=== PATIENT | female | born 1985 | race Caucasian/White ===

== ENCOUNTER 2017-05-19 08:52 | Emergency (ER) | payer SELFPAY ==
[~2017-05-19] VITALS: Ht 162.6 cm; Wt 83.9 kg
[~2017-05-19 08:52] MED LIST: CEPH500 PO; DOXY100T53 PO; PHENA200 PO; Zofran Odt4 MG SL
[2017-05-19 09:42] LABS: BASOPHILS ABSOLUTE AUTO 0.06 K/mm3 (0.00-0.23); BASOPHILS PERCENT AUTO 1 % (0-2); EOSINOPHILS ABSOLUTE AUTO 0.05 K/mm3 (0.00-0.68); EOSINOPHILS PERCENT AUTO 1 % (0-6); Hematocrit 36.6 % (33.0-51.0); Hemoglobin 12.6 g/dL (11.5-16.0); IMMATURE GRAN ABSOLUTE AUTO 0.01 K/mm3 (0.00-0.10); IMMATURE GRAN PERCENT AUTO 0 % (0-1); LYMPHOCYTES ABSOLUTE AUTO 1.39 K/mm3 (0.84-5.20); LYMPHOCYTES PERCENT AUTO 25 % (21-46); MONOCYTES ABSOLUTE AUTO 0.21 K/mm3 (0.16-1.47); MONOCYTES PERCENT AUTO 4 % (4-13); Mean Corpuscular HGB 28.8 pg (26.0-34.0); Mean Corpuscular HGB Conc 34.4 g/dL (31.5-36.5); Mean Corpuscular Volume 84 fL (80-100); Mean Platelet Volume 8.5 fL (9.1-12.4); NEUTROPHILS ABSOLUTE AUTO 3.78 K/mm3 (1.96-9.15); NEUTROPHILS PERCENT AUTO 69 % (41-73); Platelet Count 288 K/mm3 (150-400); RDW Coefficient Variation 13.8 % (11.7-14.2); RDW Standard Deviation 42.1 fL (35.1-46.3); Red Blood Cell Count 4.37 M/mm3 (3.80-5.20)
[2017-05-19 10:08] LABS: Alanine Aminotransfer (ALT/SGP 31 U/L (12-78); Albumin, Blood 3.6 g/dL (3.4-5.0); Albumin/Globulin Ratio 0.9 (0.8-1.8); Alk Phos 68 U/L (50-136); Anion Gap 15 mmol/L (6-16); Aspartate Aminotrans (AST/SGOT 22 U/L (12-37); Bilirubin, Total 0.3 mg/dL (0.1-1.0); Blood Urea Nitrogen 11 mg/dL (8-24); Bun/Creatinine Ratio 21.2 (12.0-20.0); CO2, Blood 18 mmol/L (21-32); Calcium, Blood 8.9 mg/dL (8.5-10.1); Chloride, Blood 108 mmol/L (98-108); Creatinine, Blood 0.52 mg/dL (0.40-1.00); Glomerular Filtration Rate >60 (60-); Glucose, Blood 127 mg/dL (70-99); Potassium, Blood 3.5 mmol/L (3.5-5.5); Sodium, Blood 141 mmol/L (136-145); Total Protein, Blood 7.6 g/dL (6.4-8.2)
[2017-05-19] MEDS ORDERED: PROM25 PO (10:48)
[2017-05-19] MEDS ORDERED: CHLO25 PO (10:48)
== END 2017-05-19 11:17 | disposition home or self-care (01) ==
LOC: ER 08:52
PROVIDERS: Emergency Medicine
DX: K29.70 Gastritis, unspecified, without bleeding (principal); F10.10 Alcohol abuse, uncomplicated; E86.0 Dehydration; F17.200 Nicotine dependence, unspecified, uncomplicated
CPT/HCPCS: 36415; 80053; 81025; 83690; 85025; 96374; 96375; 99283; C9113; J1170; J2550; J7120

== ENCOUNTER → 2020-11-10 | Outpatient (CLI) | payer OTHER ==
[~2020-11-10] MED LIST changes: +Ativan1 MG SL; +CHLO25 PO; +PROM25 PO; +Pepcid40 MG PO
== END | disposition home or self-care (01) ==
LOC: LAB SHORT 13:05 → LAB 13:05
DX: D48.5 Neoplasm of uncertain behavior of skin (principal)
CPT/HCPCS: 88304

== ENCOUNTER → 2020-11-16 | Outpatient (CLI) | payer OTHER ==
[2020-11-17 17:08] LABS: HPV 16 Negative (Negative); HPV 18 Negative (Negative); HPV OTHER HR TYPES Negative (Negative)
== END ==
LOC: LAB SHORT 10:30 → LAB 10:30
PROVIDERS: Family Medicine
DX: Z01.419 Encounter for gynecological examination (general) (routine) without abnormal findings (principal)
CPT/HCPCS: 87624; G0123

== ENCOUNTER 2023-08-25 10:18 | Emergency (ER) | payer OTHER ==
[~2023-08-25] VITALS: Ht 162.6 cm; Wt 68.0 kg
[2023-08-25] MEDS ORDERED: CETI5 (10:52)
[2023-08-25] MEDS ORDERED: NS 1,000 ML IV SCH ×2 (11:35→13:15)
[2023-08-25] MEDS ORDERED: Ondansetron HCl 2 MG / ML 2ML Vial IV ONE (11:35)
[2023-08-25 11:36] LABS: BASOPHILS ABSOLUTE AUTO 0.07 K/mm3 (0.00-0.23); BASOPHILS PERCENT AUTO 1 % (0-2); EOSINOPHILS PERCENT AUTO 0 % (0-6); Hematocrit 36.1 % (33.0-51.0); Hemoglobin 12.6 g/dL (11.5-16.0); IMMATURE GRAN ABSOLUTE AUTO 0.02 K/mm3 (0.00-0.10); IMMATURE GRAN PERCENT AUTO 0 % (0-1); LYMPHOCYTES ABSOLUTE AUTO 0.76 K/mm3 (0.84-5.20); LYMPHOCYTES PERCENT AUTO 13 % (21-46); MONOCYTES ABSOLUTE AUTO 0.07 K/mm3 (0.16-1.47); MONOCYTES PERCENT AUTO 1 % (4-13); Mean Corpuscular HGB 29.3 pg (26.0-34.0); Mean Corpuscular HGB Conc 34.9 g/dL (31.5-36.5); Mean Corpuscular Volume 84 fL (80-100); Mean Platelet Volume 8.2 fL (9.1-12.4); NEUTROPHILS ABSOLUTE AUTO 4.95 K/mm3 (1.96-9.15); NEUTROPHILS PERCENT AUTO 84 % (41-73); Platelet Count 301 K/mm3 (150-400); RDW Standard Deviation 39.7 fL (35.1-46.3); White Blood Cell Count 5.87 K/mm3 (4.00-11.30)
[2023-08-25 11:55] LABS: Albumin/Globulin Ratio 1.1 (0.8-1.8); Bilirubin, Total 0.2 mg/dL (0.1-1.0); Bun/Creatinine Ratio 21.4 (12.0-20.0); Calcium, Blood 8.6 mg/dL (8.5-10.1); Creatinine, Blood 0.52 mg/dL (0.40-1.00); Globulin, Blood 3.7 g/dL (2.2-4.0); Potassium, Blood 3.5 mmol/L (3.5-5.5); Total Protein, Blood 7.7 g/dL (6.4-8.2)
[2023-08-25] MEDS ORDERED: PHENobarbital Sodium 65MG / ML 1ML Vial IV ONE ×3 (12:05→14:30)
[2023-08-25] MEDS ORDERED: Ketorolac Tromethamine 15mg Vial IV ONE (13:10)
[2023-08-25] MEDS ORDERED: Famotidine 10 MG/ML 2ML Vial IV ONE (13:10)
[2023-08-25] MEDS ORDERED: Thiamine HCl 100 MG in NS 50 ML IV ONE (13:15)
[2023-08-25] MEDS ORDERED: PHENobarbital 64.8 MG Tab PO ONE (14:50)
[2023-08-25 15:20] VITALS: BP 121/82
== END 2023-08-25 15:25 | disposition home or self-care (01) ==
LOC: ER 10:18
PROVIDERS: Emergency Medicine
DX: F10.132 Alcohol abuse with withdrawal with perceptual disturbance (principal); F17.200 Nicotine dependence, unspecified, uncomplicated; Z79.899 Other long term (current) drug therapy
CPT/HCPCS: 80053; 85025; 96365; 96375; 96376; 99285-25; A9270; J1885; J2405; J2560; J3411; J7030

== ENCOUNTER 2023-11-15 22:23 | Emergency (ER) | payer OTHER ==
[~2023-11-15] VITALS: Ht 162.6 cm; Wt 68.0 kg
[~2023-11-15 22:23] MED LIST changes: +CETI5
[2023-11-15 23:00] LABS: BASOPHILS ABSOLUTE AUTO 0.07 K/mm3 (0.00-0.23); BASOPHILS PERCENT AUTO 0 % (0-2); EOSINOPHILS ABSOLUTE AUTO 0.03 K/mm3 (0.00-0.68); EOSINOPHILS PERCENT AUTO 0 % (0-6); Hematocrit 36.6 % (33.0-51.0); Hemoglobin 12.9 g/dL (11.5-16.0); IMMATURE GRAN ABSOLUTE AUTO 0.05 K/mm3 (0.00-0.10); IMMATURE GRAN PERCENT AUTO 0 % (0-1); LYMPHOCYTES ABSOLUTE AUTO 2.14 K/mm3 (0.84-5.20); LYMPHOCYTES PERCENT AUTO 14 % (21-46); MONOCYTES ABSOLUTE AUTO 0.44 K/mm3 (0.16-1.47); MONOCYTES PERCENT AUTO 3 % (4-13); Mean Corpuscular HGB 28.9 pg (26.0-34.0); Mean Corpuscular HGB Conc 35.2 g/dL (31.5-36.5); Mean Corpuscular Volume 82 fL (80-100); Mean Platelet Volume 8.4 fL (9.1-12.4); NEUTROPHILS ABSOLUTE AUTO 12.84 K/mm3 (1.96-9.15); NEUTROPHILS PERCENT AUTO 83 % (41-73); Platelet Count 354 K/mm3 (150-400); RDW Coefficient Variation 12.3 % (11.7-14.2); RDW Standard Deviation 37.2 fL (35.1-46.3); Red Blood Cell Count 4.47 M/mm3 (3.80-5.20); White Blood Cell Count 15.57 K/mm3 (4.00-11.30)
[2023-11-15] MEDS ORDERED: NS 1,000 ML IV SCH (23:00)
[2023-11-15] MEDS ORDERED: Ondansetron HCl 2 MG / ML 2ML Vial IV ONE (23:00)
[2023-11-15] MEDS ORDERED: Droperidol 5 mg/2 ml Vial IV ONE (23:20)
[2023-11-15 23:31] LABS: Albumin, Blood 4.1 g/dL (3.4-5.0); Albumin/Globulin Ratio 1.1 (0.8-1.8); Bilirubin, Total 0.4 mg/dL (0.1-1.0); Bun/Creatinine Ratio 19.4 (12.0-20.0); Calcium, Blood 9.2 mg/dL (8.5-10.1); Creatinine, Blood 0.57 mg/dL (0.40-1.00); Globulin, Blood 3.7 g/dL (2.2-4.0); Potassium, Blood 3.6 mmol/L (3.5-5.5); Total Protein, Blood 7.8 g/dL (6.4-8.2)
[2023-11-16] MEDS ORDERED: RX Prepack 2 Tabs Ondansetron ODT 4MG UD ONE (00:45)
[2023-11-16 01:15] VITALS: BP 114/102
== END 2023-11-16 01:20 | disposition home or self-care (01) ==
LOC: ER 22:23
PROVIDERS: Emergency Medicine
DX: R11.2 Nausea with vomiting, unspecified (principal); F10.10 Alcohol abuse, uncomplicated; F17.200 Nicotine dependence, unspecified, uncomplicated; Z79.899 Other long term (current) drug therapy
CPT/HCPCS: 80053; 83690; 85025; 93005; 93010; 96361; 96374; 96375; 99285-25; A9270; J1790; J2405; J7030

== ENCOUNTER 2024-05-28 07:24 | Inpatient (IN) | payer OTHER ==
[~2024-05-28] VITALS: Ht 162.6 cm; Wt 86.7 kg
[2024-05-28] MEDS ORDERED: LORazepam 2 MG/ML 1ML Injection IV ONE (08:00)
[2024-05-28] MEDS ORDERED: NS 1,000 ML IV SCH ×2 (08:00→09:50)
[2024-05-28] MEDS ORDERED: Ondansetron HCl 2 MG / ML 2ML Vial IV ONE (08:05)
[2024-05-28] MEDS ORDERED: Pantoprazole Sodium 40 MG Injection IV ONE (08:05)
[2024-05-28 08:07] LABS: BASOPHILS ABSOLUTE AUTO 0.06 K/mm3 (0.00-0.23); BASOPHILS PERCENT AUTO 1 % (0-2); EOSINOPHILS ABSOLUTE AUTO 0.04 K/mm3 (0.00-0.68); EOSINOPHILS PERCENT AUTO 1 % (0-6); Hematocrit 37.6 % (33.0-51.0); Hemoglobin 13.2 g/dL (11.5-16.0); IMMATURE GRAN ABSOLUTE AUTO 0.02 K/mm3 (0.00-0.10); IMMATURE GRAN PERCENT AUTO 0 % (0-1); LYMPHOCYTES ABSOLUTE AUTO 1.27 K/mm3 (0.84-5.20); LYMPHOCYTES PERCENT AUTO 18 % (21-46); MONOCYTES ABSOLUTE AUTO 0.57 K/mm3 (0.16-1.47); MONOCYTES PERCENT AUTO 8 % (4-13); Mean Corpuscular HGB 29.1 pg (26.0-34.0); Mean Corpuscular HGB Conc 35.1 g/dL (31.5-36.5); Mean Corpuscular Volume 83 fL (80-100); Mean Platelet Volume 8.2 fL (9.1-12.4); NEUTROPHILS ABSOLUTE AUTO 5.04 K/mm3 (1.96-9.15); NEUTROPHILS PERCENT AUTO 72 % (41-73); Platelet Count 284 K/mm3 (150-400); RDW Coefficient Variation 12.8 % (11.7-14.2); RDW Standard Deviation 38.8 fL (35.1-46.3); Red Blood Cell Count 4.53 M/mm3 (3.80-5.20)
[2024-05-28 08:32] LABS: Albumin/Globulin Ratio 1.1 (0.8-1.8); Bilirubin, Total 0.3 mg/dL (0.1-1.0); Bun/Creatinine Ratio 14.6 (12.0-20.0); Calcium, Blood 9.2 mg/dL (8.5-10.1); Creatinine, Blood 0.62 mg/dL (0.40-1.00); Globulin, Blood 3.8 g/dL (2.2-4.0); Potassium, Blood 3.7 mmol/L (3.5-5.5); Total Protein, Blood 7.8 g/dL (6.4-8.2)
[2024-05-28] MEDS ORDERED: Atropine/Scopalam/Hyoscam/PB 5 ML UDC PO ONE (08:45)
[2024-05-28] MEDS ORDERED: Famotidine 20 MG Tab PO ONE (08:45)
[2024-05-28] MEDS ORDERED: Mag Hydrox/AL Hydrox/Simeth 30 ML UDC PO ONE (08:45)
[2024-05-28] MEDS ORDERED: Lidocaine 2% Viscous Soln 15 ML UDC PO ONE (08:45)
[2024-05-28] MEDS ORDERED: Folic Acid 1 MG TAB PO SCH (09:00)
[2024-05-28] MEDS ORDERED: Thiamine HCl 100 MG Tab PO SCH (09:00)
[2024-05-28 09:11] LABS: Magnesium, Blood 1.8 mg/dL (1.6-2.4); Phosphorus, Blood 2.3 mg/dL (2.5-4.9)
[2024-05-28] MEDS ORDERED: Potassium Phosphate,Monobasic 500 MG Tablet PO ONE (09:40)
[2024-05-28] MEDS ORDERED: PHENobarbitaL sodium 130 MG/ML VIAL IV ONE (10:55)
[2024-05-28] MEDS ORDERED: Lactated Ringer's 1,000 ML IV SCH (11:00)
[2024-05-28] MEDS ORDERED: Ondansetron HCl 2 MG / ML 2ML Vial IV PRN (11:00)
[2024-05-28] MEDS ORDERED: LORazepam 2 MG/ML 1ML Injection IV PRN ×2 (11:00→11:15)
[2024-05-28] MEDS ORDERED: ChlordiazePOXIDE 25 MG Cap PO PRN ×2 (11:00→11:05)
[2024-05-28] MEDS ORDERED: Metoclopramide HCl 5MG / ML 2ML Vial IV PRN (11:00)
[2024-05-28] MEDS ORDERED: FentaNYL Citrate 50 MCG/ML 2 ML Injection IV PRN (11:05)
[2024-05-28] MEDS ORDERED: Potassium Phosphate Dibasic 20 MM in Dextrose 5% 500 ML IV STA (11:10)
[2024-05-28] MEDS ORDERED: LORazepam 2 MG / ML 10ML Vial IV PRN (11:20)
[2024-05-28 14:20] VITALS: BP 139/87
[2024-05-28] MEDS ORDERED: OMEP20ER PO (14:26)
[2024-05-28 16:09] LABS: Influenza A, PCR NEGATIVE (NEGATIVE); Influenza B, PCR NEGATIVE (NEGATIVE); Resp Syncytial Virus, PCR NEGATIVE (NEGATIVE); SARS-Cov-2 (COVID-19) PCR, MMC POSITIVE (NEGATIVE)
--- NOTE | 2024-05-28 18:10 | NUR ---
SHIFT SUMMARY PT ARRIVED TO PCU AT APPROXIMATELY 1410. PT TRANSFERED FROM ER [facility] TO HOSPITAL BED WITH SBA. PT A&Ox4, CALLS AND COMMUNICATES NEEDS APPROPRIATELY. CIWA 4 UPON ARRIVAL, PEAKED AT 8 - MANAGED PER EMAR. BP STABLE, SINUS 90'S, DENIES CP/PRESSURE. SpO2> 92% RA, DENIES SOB. NO C/O PAIN. NO OTHER EVENTS, WILL REPORT TO ONCOMING RN.
[2024-05-28 19:55] VITALS: BP 138/99
[2024-05-28] MEDS ORDERED: Thiamine HCl 500 MG in NS 100 ML IV SCH (21:00)
[2024-05-29] VITALS (7 sets, daily range): BP systolic 101–147; BP diastolic 72–103
[2024-05-29 04:11] LABS: Source, Urine Clean Catch
[2024-05-29 04:15] LABS: BASOPHILS ABSOLUTE AUTO 0.05 K/mm3 (0.00-0.23); BASOPHILS PERCENT AUTO 1 % (0-2); EOSINOPHILS ABSOLUTE AUTO 0.14 K/mm3 (0.00-0.68); EOSINOPHILS PERCENT AUTO 2 % (0-6); Hematocrit 35.1 % (33.0-51.0); Hemoglobin 11.6 g/dL (11.5-16.0); IMMATURE GRAN ABSOLUTE AUTO 0.02 K/mm3 (0.00-0.10); IMMATURE GRAN PERCENT AUTO 0 % (0-1); LYMPHOCYTES ABSOLUTE AUTO 2.29 K/mm3 (0.84-5.20); LYMPHOCYTES PERCENT AUTO 40 % (21-46); MONOCYTES ABSOLUTE AUTO 0.59 K/mm3 (0.16-1.47); MONOCYTES PERCENT AUTO 10 % (4-13); Mean Platelet Volume 8.5 fL (9.1-12.4); NEUTROPHILS ABSOLUTE AUTO 2.69 K/mm3 (1.96-9.15); NEUTROPHILS PERCENT AUTO 47 % (41-73); Platelet Count 235 K/mm3 (150-400); RDW Coefficient Variation 12.9 % (11.7-14.2); White Blood Cell Count 5.78 K/mm3 (4.00-11.30)
[2024-05-29 04:20] LABS: Appearance, Urine Clear (Clear); Bilirubin, Urine Neg (Neg); Blood, Urine Neg (Neg); Color, Urine Yellow (P-Yellow); Glucose Qualitative, Urine Neg (Neg); Ketones, Urine Neg (Neg); Leukocyte Esterase, Urine Neg (Neg); Nitrite, Urine Neg (Neg); Protein, Urine 1+ (Neg); Specific Gravity, Urine 1.015 (1.003-1.022); Urobilinogen, Urine NORM (Normal); pH, Urine 6.5 (5.0-8.0)
[2024-05-29 04:21] LABS: Mean Corpuscular Volume 88 fL (80-100)
--- NOTE | 2024-05-29 04:22 | NUR ---
NURSE NOTE STOOL AND URINE COLLECTED AND SENT TO LAB.
[2024-05-29 04:37] LABS: Bun/Creatinine Ratio 9.2 (12.0-20.0); Calcium, Blood 8.2 mg/dL (8.5-10.1); Creatinine, Blood 0.65 mg/dL (0.40-1.00); Magnesium, Blood 1.8 mg/dL (1.6-2.4); Phosphorus, Blood 3.5 mg/dL (2.5-4.9); Potassium, Blood 3.4 mmol/L (3.5-5.5)
--- NOTE | 2024-05-29 05:30 | NUR ---
SHIFT SUMMARY PT IS A+O X4 ABLE TO MAKE NEEDS KNOWN, CALLS AND COMMUNICATES NEEDS. CIWA 2-8 THIS SHIFT MEDICATED X1 PER EMAR. TELE SHOWING SINUS AT A RATE OF 68. DENIES CHEST PAIN OR PRESSURE. SpOS >93% ON RA, DENIES SOB. DENIES PAIN. SHE WAS ABLE TO SLEEP ON AND OFF IN BETWEEN CARES. BREATHING EVEN AND UNLABORED. NO ACTUE EVENTS. DENIES NEEDS AT THIS TIME. CALL LIGHT IN REACH. BED ALARM ON. WILL CONTINUE WITH PLAN OF CARE AND REPORT TO ONCOMING RN.
[2024-05-29] MEDS ORDERED: Pantoprazole Sodium 40 MG Injection IV SCH (06:00)
[2024-05-29 06:20] LABS: Adenovirus F 40/41 Not Detected (NOT DETECT); Astrovirus Not Detected (NOT DETECT); Campylobacter Sp Not Detected (NOT DETECT); Cryptosporidium Not Detected (NOT DETECT); Cyclospora Cayetanensis Not Detected (NOT DETECT); E. Coli O157 Not Detected (NOT DETECT); Entamoeba Histolytica Not Detected (NOT DETECT); Enteroaggregative E. coli-EAEC Not Detected (NOT DETECT); Enteropathogenic E. coli-EPEC Not Detected (NOT DETECT); Enterotoxigenic E. coli-ETEC Not Detected (NOT DETECT); Giardia Lamblia Not Detected (NOT DETECT); Norovirus GI/GII Not Detected (NOT DETECT); Plesiomonas Shigelloides Not Detected (NOT DETECT); Rotavirus A Not Detected (NOT DETECT); Salmonella Sp Not Detected (NOT DETECT); Sapovirus Not Detected (NOT DETECT); Shiga Toxin-prod E. coli-STEC Not Detected (NOT DETECT); Shigella/Enteroin E. coli-EIEC Not Detected (NOT DETECT); Vibrio Cholerae Not Detected (NOT DETECT); Vibrio Sp Not Detected (NOT DETECT); Yersinia Enterocolitica Not Detected (NOT DETECT)
[2024-05-29] MEDS ORDERED: Folic Acid 1 MG in NS 50 ML IV SCH (09:00)
[2024-05-29] MEDS ORDERED: Enoxaparin 40 MG/0.4 ML SYR SC SCH (09:00)
[2024-05-29] MEDS ORDERED: Acetaminophen 325 MG TABLET PO PRN (09:10)
[2024-05-29] MEDS ORDERED: Potassium Chloride 20 MEQ TabCR PO ONE (10:20)
[2024-05-29] MEDS ORDERED: Loperamide HCl 2 MG Cap PO PRN (10:30)
[2024-05-29] MEDS ORDERED: HYDHCL25 PO (13:24)
--- NOTE | 2024-05-29 14:17 | NUR ---
DISCHARGE SUMMARY PT A&OX4. CIWA 0-3 THIS SHIFT. VSS. DISCHARGE PAPERWORK REVIEWED W/ PT. MEDICATIONS SENT TO [facility] PER PT REQUEST. IMMODIUM AND TYLENOL GIVEN THIS SHIFT FOR LOWER BACK PAIN AND DIARRHEA. IV REMOVED. TELEMETRY REMOVED. PT HELPED DRESS IN HOME CLOTHES. PT WHEEL TO FAMILY PRIVATE VEHICLE FOR DISCHARGE.
[2024-05-31 10:11] LABS: AMPHETAMINES, S/P, SCREEN Negative ng/mL (Cutoff 20); BARBITURATES, S/P, SCREEN Negative ng/mL (Cutoff 50); BENZODIAZEPINES, S/P, SCREEN Negative ng/mL (Cutoff 50); BUPRENORPHINE, S/P, SCREEN Negative ng/mL (Cutoff 1); CANNABINOIDS, S/P, SCREEN Positive ng/mL (Cutoff 20); COCAINE, S/P, SCREEN Negative ng/mL (Cutoff 20); METHADONE, S/P, SCREEN Negative ng/mL (Cutoff 25); METHAMPHETAMINE, S/P, SCREEN Negative ng/mL (Cutoff 20); OPIATES, S/P, SCREEN Negative ng/mL (Cutoff 20); OXYCODONE, S/P, SCREEN Negative ng/mL (Cutoff 20); PHENCYCLIDINE, S/P, SCREEN Negative ng/mL (Cutoff 10)
== END 2024-05-29 14:01 | disposition home or self-care (01) | DRG 896 ==
LOC: ER 07:24 → PCU 10:53
PROVIDERS: Student in an Organized Health Care Education/Training Program; ADMIT Family Medicine
PROC: HZ2ZZZZ Detoxification Services for Substance Abuse Treatment (ICD-10-PCS; principal; 2024-05-28)
DX: F10.239 Alcohol dependence with withdrawal, unspecified (principal); U07.1 COVID-19; E87.20 Acidosis, unspecified; F17.210 Nicotine dependence, cigarettes, uncomplicated; F12.10 Cannabis abuse, uncomplicated; F41.9 Anxiety disorder, unspecified; F10.229 Alcohol dependence with intoxication, unspecified; E83.39 Other disorders of phosphorus metabolism; K21.9 Gastro-esophageal reflux disease without esophagitis; E87.6 Hypokalemia; Z79.899 Other long term (current) drug therapy; Z71.41 Alcohol abuse counseling and surveillance of alcoholic; Y90.1 Blood alcohol level of 20-39 mg/100 ml
CPT/HCPCS: 0241U; 36415; 71045; 80048; 80053; 80320; 81025; 83605; 83690; 83735; 84100; 84145; 85025; 87507; 93005; 93010; 96361; 96374; 96375; 99285-25; A9270; J1650; J2060; J2405; J2470; J2560; J2765; J3411; J7030; J7060; J7120